=== PATIENT | female | born 1995 | race African-American/Black ===

== ENCOUNTER 2016-09-25 10:17 | Emergency (ER) | payer OTHER ==
[~2016-09-25] VITALS: Ht 152.4 cm; Wt 70.0 kg
[2016-09-25 10:19] VITALS: BP 124/78; PULSE 87; RESP 16; TEMP 98.1; O2SAT 99
--- NOTE | 2016-09-25 11:04 | PD ---
HPI Chief Complaint: Complaint Time Seen by Provider: 10:59 Travel History International Travel<30 days: No Contact w/Intl Traveler<30days: No Traveled to known affect area: No History of Present Illness HPI 21-year-old female presents to the emergency Department with complaint of vaginal discharge and burning on urination. The vaginal discharge has been occurring for the last week and a half or so. She used [id number] Monistat with relief of some symptoms. She reports vaginal irritation and thick white discharge. Denies vaginal odor. Reports dysuria, urinary urgency and frequency. Denies hematuria. Denies fever, chills, nausea, vomiting, abdominal pain. Has not taken any other medications or tried any other treatments to alleviate her symptoms. No known relieving factors. Vaginal irritation is worse with sexual intercourse. Last menstrual period one week ago. Denies contraception use. Denies allergies. Denies significant past medical history. No other modifying factors or associated signs and symptoms. PFSH Past Medical History Medical History: Denies Significant Hx ?: Not LMP: 2 days ago Social History Tobacco Use: No Allergies-Medications (Allergen,Severity, Reaction): Coded Allergies: No Known Allergies (Unverified , 09/25/16) Review of Systems Except as stated in HPI: all other systems reviewed are Neg Physical Exam Narrative GENERAL: Well-nourished, well-developed female patient, in no acute distress SKIN: Warm and dry. No rash. HEAD: Atraumatic. Normocephalic. EYES: Pupils equal and round. No scleral icterus. No injection or drainage. ENT: Mucosa pink and moist. NECK: Trachea midline. CARDIOVASCULAR: Regular rate and rhythm. RESPIRATORY: No accessory muscle use. GASTROINTESTINAL: Abdomen soft, non-tender, nondistended. Hepatic and splenic margins not palpable. Bowel sounds are active 4 quadrants. Bladder nontender and nondistended. MUSCULOSKELETAL: No obvious deformities. No clubbing. No cyanosis. No edema. BACK: No CVA tenderness NEUROLOGICAL: Awake and alert. Oriented 3. No obvious cranial nerve deficits. Motor grossly within normal limits. Normal speech. Moves all extremities. 5/5 strength to all extremities. PSYCHIATRIC: Appropriate mood and affect; insight and judgment normal. Data Data Last Documented VS Vital Signs Date Time Temp Pulse Resp B/P Pulse Ox O2 Delivery O2 Flow Rate FiO2 09/25/16 10:19 98.1 87 16 124/78 99 Orders Urinalysis - C+S If Indicated (09/25/16 10:52) Gc And Chlamydia Pcr (09/25/16 10:58) Wet Prep Profile (09/25/16 10:58) Ed Urine Pregnancytest Poc (09/25/16 10:58) MDM Medical Decision Making Medical Screen Exam Complete: Yes Emergency Medical Condition: Yes Medical Record Reviewed: Yes Differential Diagnosis Bacterial vaginosis, urinary tract infection, chlamydia, gonorrhea, vaginal yeast, genital herpes Narrative Course 21-year-old female with vaginal irritation, vaginal discharge, dysuria. Patient is afebrile nontoxic appearing. She denies fever, chills, nausea, vomiting. Denies abdominal pain. Abdominal exam is unremarkable. Last menstrual period one week ago. Denies contraception use. Urinalysis, urine , wet prep profile, chlamydia, gonorrhea ordered. Treatment initiated in [facility]. Care of patient will be transferred to alternate provider when medical bed is available. See alternate provider's note for patient disposition. Mila Ruvalcaba Sep 25, 2016 11:04
--- NOTE | 2016-09-25 11:23 | PD ---
Physical Exam Date Seen by Provider: Sep 25, 2016 Narrative Patient is here with vaginal discharge and irritation of the external genitalia Data Data Last Documented VS Vital Signs Date Time Temp Pulse Resp B/P Pulse Ox O2 Delivery O2 Flow Rate FiO2 09/25/16 10:19 98.1 87 16 124/78 99 Orders Urinalysis - C+S If Indicated (09/25/16 10:52) Gc And Chlamydia Pcr (09/25/16 10:58) Wet Prep Profile (09/25/16 10:58) Ed Urine Pregnancytest Poc (09/25/16 10:58) Urine Culture (09/25/16 11:23) Labs Laboratory Tests Test 09/25/16 11:23 Urine Color YELLOW Urine Turbidity HAZY Urine pH 6.5 Urine Specific [place] 1.020 Urine Protein TRACE mg/dL Urine Glucose (UA) NEG mg/dL Urine Ketones NEG mg/dL Urine Occult Blood NEG Urine Nitrite NEG Urine Bilirubin NEG Urine Urobilinogen LESS THAN 2.0 MG/DL Urine Leukocyte Esterase LARGE Urine RBC 1 /hpf Urine WBC 45 /hpf Urine Squamous Epithelial 10 /hpf Cells Urine Transitional Epithelial <1 /hpf Cells Urine Amorphous Sediment RARE Urine Bacteria RARE /hpf Urine Mucus FEW /lpf Microscopic Urinalysis Comment CULTURE INDICATED Clue Cells (Wet Prep) NONE SEEN Vaginal Trichomonas (Wet Prep) NONE SEEN Vaginal Yeast (Wet Prep) NONE SEEN MDM Supervised Visit with JOHN: Yes Narrative Course I, Dr. Rios, have reviewed the advance practice practitioner's documentation and am in agreement, met with the patient face to face, made the diagnosis, and the medical decision making was done by me. *My assessment and Findings: GENERAL: Awake and alert and in no acute distress. SKIN: Warm and dry. CARDIOVASCULAR: Regular rate and rhythm. RESPIRATORY: No accessory muscle use. : Normal female external genitalia. White vaginal discharge. Cervical os is closed. No cervical motion tenderness or Tenderness. Uterus is small and nontender. MUSCULOSKELETAL: No obvious deformities. No edema. NEUROLOGICAL: Awake and alert. No obvious cranial nerve deficits. Motor grossly within normal limits. Normal speech. PSYCHIATRIC: Appropriate mood and affect; insight and judgment normal. UA is consistent with UTI. Large leukocyte esterase, 45 white blood cells. Wet prep is negative. Diagnosis Primary Impression: UTI (urinary tract infection) Qualified Code: N30.00 - Acute cystitis without hematuria Patient Instructions: General Instructions, Urinary Tract Infection in Women ( [place]) Med/Other Pt SpecificInfo: Prescription(s) given Scripts Phenazopyridine (Pyridium)200 Mg Vtn123 Mg PO Q8H PRN (DYSURIA) #10 TAB Ref 0 Prov:Bhavya Rios MD 09/25/16 Sulfamethoxazole-Trimethoprim (Bactrim DS)800-160 Mg Tab1 Tab PO BID #14 TAB Ref 0 Prov:Bhavya Rios MD 09/25/16 Disposition: 01 DISCHARGE HOME Condition: Stable Bhavya Rios MD Sep 25, 2016 11:23
[2016-09-25 11:57] LABS: BACTERIA, URINE RARE /hpf; BLOOD, URINE NEG (NEG); GLUCOSE,URINE NEG (NEG); KETONE, URINE NEG (NEG); MUCUS URINE FEW /lpf (OCC); NITRITE,URINE NEG (NEG); PH, URINE 6.5 (5.0-8.5); SQUAMOUS EPITHELIAL CELL URINE 10 /hpf (0-5); TRANSITIONAL EPI CELLS, URINE <1 /hpf; URINE COLOR YELLOW (YELLW/STRAW)
[2016-09-25 11:58] LABS: COMMENT (UR) CULTURE INDICATED; CULTURE IF INDICATED CULTURE INDICATED
[2016-09-25] MEDS ORDERED: BACT800T5 PO (12:05)
[2016-09-25] MEDS ORDERED: PYRI200T4 PO (12:05)
[2016-09-25 17:01] LABS: CHLAMYDIA PCR NOT DETECTED (NOT DETECT); NEISSERIA PCR NOT DETECTED (NOT DETECT)
== END 2016-09-25 12:22 | disposition home or self-care (01) ==
LOC: NEPB 10:17 → NEPA 12:22
DX: N39.0 Urinary tract infection, site not specified (principal); B96.29 Other Escherichia coli [E. coli] as the cause of diseases classified elsewhere
CPT/HCPCS: 81001; 84703; 87077; 87086; 87186; 87210; 87491; 87591; 99283